=== PATIENT | female | born 1930 | race Caucasian/White ===

== ENCOUNTER 2018-01-05 10:31 | Emergency (ER) | payer OTHER, BC ==
--- NOTE | 2018-01-05 10:48 | PDOC ---
History of Present Illness - General Chief Complaint: Pain Stated Complaint: LEFT KNEE PAIN FOR 3 DAYS Time Seen by Provider: 01/05/18 10:47 History Source: Patient Exam Limitations: No Limitations - History of Present Illness Initial Comments: 87 yo F history HTN, hypothyroid, arthritis presents with 1 day history of knee pain. She states that she has had arthritic pain in the past, but this seems to be worse. The pain is worse and she also notes that she has swelling to medial knee that she has not had in the past. She has been using aspercreme with lidocaine, no relief. Also using NSAIDs. She walks with a cane. No weakness, numbness. Past History - Past Medical History Allergies/Adverse Reactions: Allergies Allergy/AdvReac Type Severity Reaction Status Date / Time iodine Allergy Severe facial Verified 01/05/18 10:32 swelling Home Medications: Ambulatory Orders Cholecalciferol (Vitamin D3) [Vitamin D3] 4,000 unit PO DAILY 01/05/18 Glucosam/Chondroit/C/Manganese [Cosamin Ds Capsule] 1 each PO DAILY 01/05/18 Levothyroxine Sodium [Synthroid] 88 mcg PO DAILY 01/05/18 Olmesartan Medoxomil 40 mg PO DAILY 01/05/18 Ondansetron [Zofran Odt -] 4 mg SL TID PRN #21 od.tablet 01/05/18 Tramadol HCl 0.5 - 1 tab PO Q6H PRN #12 tablet MDD 12 tabs 01/05/18 Cancer: Yes (BREAST CA) COPD: Yes HTN: Yes Thyroid Disease: Yes (HYPOTHYROID) - Surgical History Appendectomy: Yes - Suicide/Smoking/Psychosocial Hx Smoking Status: Yes Smoking History: Former smoker Have you smoked in the past 12 months: No Number of Cigarettes Smoked Daily: 0 If you are a former smoker, when did you quit?: 1990 Information on smoking cessation initiated: No Hx Alcohol Use: Yes (SOCIAL) Drug/Substance Use Hx: No Substance Use Type: Alcohol Review of Systems - Review of Systems Able to Perform ROS?: Yes Comments:: GENERAL/CONSTITUTIONAL: No fever or chills. No weakness. HEAD, EYES, EARS, NOSE AND THROAT: No change in vision. No ear pain or discharge. No sore throat. CARDIOVASCULAR: No chest pain or shortness of breath. RESPIRATORY: No cough, wheezing, or hemoptysis. GASTROINTESTINAL: No nausea, vomiting, diarrhea or constipation. GENITOURINARY: No dysuria, frequency, or change in urination. MUSCULOSKELETAL: +L knee pain and swelling. No neck or back pain. SKIN: No rash NEUROLOGIC: No headache, vertigo, loss of consciousness, or change in strength/ sensation. ENDOCRINE: No increased thirst. No abnormal weight change. HEMATOLOGIC/LYMPHATIC: No anemia, easy bleeding, or history of blood clots. ALLERGIC/IMMUNOLOGIC: No hives or skin allergy. *Physical Exam - Vital Signs Last Vital Signs Temp Pulse Resp BP Pulse Ox 97.8 F 90 20 176/94 94 L 01/05/18 10:32 01/05/18 10:32 01/05/18 10:32 01/05/18 10:32 01/05/18 10:32 - Physical Exam Comments: GENERAL: Awake, alert, and fully oriented, in no acute distress HEAD: No signs of trauma EYES: PERRLA, EOMI, sclera anicteric, conjunctiva clear EXTREMITIES: L knee with full active range of motion. +Mild effusion. No erythema. No ligamentous instability. Blaise's test negaticve. Remainder of extremities with normal range of motion, no edema. No clubbing or cyanosis. No cords, erythema, or tenderness NEUROLOGICAL: Cranial nerves II through XII grossly intact. Normal speech. + Antalgic gait. SKIN: Warm, Dry, normal turgor, no rashes or lesions noted. Medical Decision Making - Medical Decision Making 01/05/18 11:32 XR reviewed, no acute pathology. Stable for DC home with ortho f/u. 01/05/18 11:47 Results d/w patient and daughter at bedside. I offered her tramadol for pain in ED (she states that tylenol does not agree with her, she has been taking NSAIDs without relief- we discussed that NSAIDs are not a good option at her age), she declined. Opted to have rx, which she will fill if she needs for pain. I have also written rx for zofran in case of nausea. J CARLOS wrap placed for support. Opted not to use immobilizer, as she has not ligamentous instability and it would put her at risk for falls. F/u with Dr. Coronel. *DC/Admit/Observation/Transfer Diagnosis at time of Disposition: Knee pain, left Qualifiers: Chronicity: acute Qualified Code(s): M25.562 - Pain in left knee - Discharge Dispostion Disposition: HOME Condition at time of disposition: Stable Admit: No - Prescriptions Prescriptions: Ondansetron [Zofran Odt -] 4 mg SL TID PRN #21 od.tablet PRN Reason: Nausea And/Or Vomiting Tramadol HCl 0.5 - 1 tab PO Q6H PRN #12 tablet MDD 12 tabs PRN Reason: Severe Pain - Referrals Referrals: Ariel Coronel MD [Staff Physician] - - Patient Instructions Printed Discharge Instructions: DI for Knee Pain Additional Instructions: Tramadol- take 1/2-1 tab as needed every 6 hours for pain. Take with food. If it causes nausea, you can take zofran as prescribed. - Post Discharge Activity
[2018-01-05 10:49] VITALS: BP 176/94; PULSE 90; TEMP 97.8; BMI 28.3
== END 2018-01-05 11:50 | disposition home or self-care (01) ==
LOC: FER 10:31
DX: M25.562 Pain in left knee (principal); I10 Essential (primary) hypertension; E03.9 Hypothyroidism, unspecified; J44.9 Chronic obstructive pulmonary disease, unspecified; Z85.3 Personal history of malignant neoplasm of breast
CPT/HCPCS: 73562-TC-LT-FY; 99282-25

== ENCOUNTER 2018-08-26 12:29 | Emergency (ER) | payer OTHER, BC ==
[2018-08-26 12:41] VITALS: BP 157/82; PULSE 84; TEMP 98.2; BMI 26.5
[2018-08-26] MEDS ORDERED: traMADol HCL 50 MG TABLET PO ONE (13:04)
[2018-08-26] MEDS ORDERED: traMADol HCL 50 MG TABLET ONE (13:06)
--- NOTE | 2018-08-26 13:09 | PDOC ---
History of Present Illness - General Chief Complaint: Pain Stated Complaint: LEFT KNEE PAIN Time Seen by Provider: 08/26/18 12:41 History Source: Patient, Old Records Exam Limitations: No Limitations - History of Present Illness Initial Comments: 08/26/18 13:04 High functioning 87-year-old female with history of arthritis presents with atraumatic left knee pain over the last few days. Pain is typical of past arthritis flares, treated over the summer with intra-articular injections by Dr. Coronel of orthopedics. The patient was asymptomatic until a few days ago, when she began developing pain to her left knee followed by swelling, typical of her arthritis. Pain was initially worse with starting movements, last night had severe sharp pain so she presents for evaluation. No redness, no fevers or chills, no numbness or weakness. No unusual strain that she can recall. Past History - Past Medical History Allergies/Adverse Reactions: Allergies Allergy/AdvReac Type Severity Reaction Status Date / Time iodine Allergy Severe facial Verified 08/26/18 12:35 swelling Home Medications: Ambulatory Orders Cholecalciferol (Vitamin D3) [Vitamin D3] 4,000 unit PO DAILY 01/05/18 Levothyroxine Sodium [Synthroid] 88 mcg PO DAILY 01/05/18 Olmesartan Medoxomil 40 mg PO DAILY 01/05/18 Cyanocobalamin (Vitamin B-12) [Vitamin B12] mcg PO DAILY 08/26/18 Tramadol HCl 50 mg PO BID PRN #7 tablet MDD 2 tabs 08/26/18 Cancer: Yes (BREAST CA) COPD: Yes HTN: Yes Thyroid Disease: Yes (HYPOTHYROID) - Surgical History Appendectomy: Yes - Suicide/Smoking/Psychosocial Hx Smoking Status: Yes Smoking History: Former smoker Have you smoked in the past 12 months: No Number of Cigarettes Smoked Daily: 0 If you are a former smoker, when did you quit?: 1990 Information on smoking cessation initiated: No Hx Alcohol Use: (daily) Drug/Substance Use Hx: No Substance Use Type: Alcohol Review of Systems - Review of Systems Constitutional: No: Chills, Fever, Night Sweats Musculoskeletal: Yes: Joint Pain. No: Muscle Weakness Integumentary: No: Rash Neurological: No: Tingling, Weakness *Physical Exam - Vital Signs Last Vital Signs Temp Pulse Resp BP Pulse Ox 98.2 F 84 157/82 97 08/26/18 12:30 08/26/18 12:30 08/26/18 12:30 08/26/18 12:30 - Physical Exam Comments: 08/26/18 13:06 afebrile. GENERAL: The patient is awake, alert, and fully oriented, in no acute distress. Pleasant, seated in stretcher. HEAD: Normal with no signs of trauma. EYES: Pupils equal, round and reactive to light, extraocular movements intact, sclera anicteric, conjunctiva clear. EXTREMITIES: Full range of motion of both knees with full strength, mild left knee effusion predominantly suprapatellar and medial. No overlying cellulitis or warmth, no focal bony tenderness to palpation. NEUROLOGICAL: Normal speech, slightly antalgic gait favoring left knee. PSYCH: Normal mood, normal affect. SKIN: Warm, Dry, normal turgor, no rashes or lesions noted. Medical Decision Making - Medical Decision Making 08/26/18 13:07 87y/o F with h/o L knee arthritis p/w atraumatic L knee arthritis flare with small effusion. nvi without evidence of infection. xray from 01/12 showed arthritic changes but otherwise normal anatomy trial of tramadol, which she has taken successfully in the past ortho referral - is looking to switch and has a contact that saw her daughter at bedside, all agree with plan and understand return criteria. *DC/Admit/Observation/Transfer Diagnosis at time of Disposition: Knee pain, left Qualifiers: Chronicity: acute Qualified Code(s): M25.562 - Pain in left knee - Discharge Dispostion Disposition: HOME Condition at time of disposition: Stable - Prescriptions Prescriptions: Tramadol HCl 50 mg PO BID PRN #7 tablet MDD 2 tabs PRN Reason: Pain - Referrals Referrals: Ilya Albarran MD [Primary Care Provider] - - Patient Instructions Printed Discharge Instructions: DI for Osteoarthritis Additional Instructions: Activity as tolerated. Stay hydrated. Naproxen (Aleve) 400 mg twice daily as needed for moderate pain, tramadol as prescribed as needed for severe pain. Tramadol can make you lightheaded, so take proper precautions. Ice and elevate the affected areas for 20 minutes every 3-4 hours to reduce swelling. Continue your medications as previously prescribed by your physician. You should follow up with your orthopedic as soon as possible regarding today's emergency department visit. Return to the emergency department for any new or concerning symptoms, particularly persistent or intolerable pain, severe swelling or discoloration, fever or chills, numbness or weakness. - Post Discharge Activity
== END 2018-08-26 13:20 | disposition home or self-care (01) ==
LOC: FER 12:29
DX: M25.562 Pain in left knee (principal); I10 Essential (primary) hypertension; E03.9 Hypothyroidism, unspecified; Z87.891 Personal history of nicotine dependence; Z85.3 Personal history of malignant neoplasm of breast
CPT/HCPCS: 99283-25